=== PATIENT | male | born 1965 | race Caucasian/White ===

== ENCOUNTER 2021-06-06 07:48 | Inpatient (IN) ==
[2021-06-06] MEDS ORDERED: 0.9 % Sodium Chloride 1,000 ML IVC ONE ×2 (07:58→08:00)
[2021-06-06] MEDS ORDERED: Pantoprazole 40 MG VIAL IVP ONE ×2 (07:58→08:07)
[2021-06-06] MEDS ORDERED: Ondansetron 4 MG/2 ML VIAL IVP ONE ×2 (07:58→10:33)
[2021-06-06] MEDS ORDERED: cefTRIAXone 1,000 MG in Water for inj. (sterile) 10 ML IVP ONE (08:16)
[2021-06-06] MEDS: Octreotide 400 MCG in 0.9 % Sodium Chloride 100 ML IVC SCH (08:33)
[2021-06-06] MEDS: Pantoprazole 40 MG in 0.9 % Sodium Chloride Mini Bag 100 ML IVC SCH ×4 (08:37→20:37)
[2021-06-06 09:00] LABS: Basophils % 0.3 %; Hematocrit 28.8 % (37.5-50.1); Hemoglobin 9.6 g/dL (12.9-16.9); Immature Granulocytes % 0.5 % (0-4); Lymphocytes # 0.3 K/mcL (0.6-4.6); Lymphocytes % 5.3 %; Mean Corpuscular HGB Conc 33.3 g/dL (31.6-35.5); Mean Corpuscular Hemoglobin 34.9 pg (28.0-33.3); Mean Corpuscular Volume 104.7 fL (83.0-100.0); Mean Platelet Volume 10.6 fL (9.4-12.4); Monocytes # 0.7 K/mcL (0.0-1.3); Neutrophils # 4.9 K/mcL (1.6-8.9); Platelet Count 114 K/mcL (140-400); Red Blood Count 2.75 M/mcL (4.19-5.50); Red Cell Distribution Width 13.5 % (11.5-14.5); Segmented Neutrophils % 81.9 %
[2021-06-06 09:15] LABS: Alanine Aminotransferase 86 Units/L (7-52); Alkaline Phosphatase 143 Units/L (34-104); Aspartate Amino Transferase 184 Units/L (13-39); BUN/Creatinine Ratio 27 (6-26); Bilirubin,Direct 2.3 mg/dL (0.0-0.2); Bilirubin,Indirect 1.8 mg/dL (0.0-1.0); Bilirubin,Total 4.1 mg/dL (0.3-1.0); Blood Urea Nitrogen 31 mg/dL (6-20); Calcium 8.1 mg/dL (8.6-10.3); Carbon Dioxide 24 mEq/L (23-29); Chloride 104 mEq/L (98-107); Globulin 3.1 g/dL (2.4-3.5); Glucose 130 mg/dL (70-105); Lipase 113 Units/L (11-82); Magnesium 1.4 mg/dL (1.6-2.6); Osmolality,Calculated 296 (280-300); Potassium 4.2 mEq/L (3.5-5.1); Sodium 139 mEq/L (136-145); Total Protein 6.1 g/dL (6.4-8.9); Troponin I < 0.03 ng/mL (< 0.04); eGFR For African Americans > 60 (> 60); eGFR For Non-African Americans > 60 (> 60)
[2021-06-06] MEDS ORDERED: Isovue-370 500 ML BOTTLE IVP ONE (09:45)
[2021-06-06] MEDS ORDERED: 0.9 % Sodium Chloride 250 ML ONE (10:11)
[2021-06-06] MEDS ORDERED: Naloxone 0.4 MG/ML INJ IVP PRN (11:43)
[2021-06-06] MEDS: MetroNIDAZOLE 500 MG/100 ML 500 MG/100 ML BAG IVPB SCH (15:46)
[2021-06-06 16:12] LABS: INR 1.5; Prothrombin Time 17.4 Seconds (9.4-12.1)
[2021-06-06 16:14] LABS: Activated Partial Thrombo Time 30.7 Seconds (26.0-36.0)
[2021-06-06 19:03] LABS: Adenovirus Not Detected (Not Detect); Bordetella Pertussis Not Detected (Not Detect); Chlamydophila pneumoniae Not Detected (Not Detect); Coronavirus 229E Not Detected (Not Detect); Coronavirus HKU1 Not Detected (Not Detect); Coronavirus NL63 Not Detected (Not Detect); Coronavirus OC43 Not Detected (Not Detect); Human Metapneumovirus Not Detected (Not Detect); Human Rhinovirus/Enterovirus Not Detected (Not Detect); Influenza A Subtype 2009 H1 Not Detected (Not Detect); Influenza B Not Detected (Not Detect); Mycoplasma pneumoniae Not Detected (Not Detect); Parainfluenza Virus 1 Not Detected (Not Detect); Parainfluenza Virus 2 Not Detected (Not Detect); Parainfluenza Virus 3 Not Detected (Not Detect); Parainfluenza Virus 4 Not Detected (Not Detect); Respiratory Syncytial Virus Not Detected (Not Detect); SARS-CoV-2 Not Detected (Not Detect)
[2021-06-06] MEDS ORDERED: *HR* LORazepam 2 MG/ML VIAL IVP PRN ×3 (20:45)
[2021-06-06] MEDS ORDERED: Prochlorperazine 10 MG/2 ML VIAL IVP PRN (21:02)
[2021-06-06 21:29] LABS: Amylase 34 Units/L (29-103); Ethanol < 10 mg/dL (Less than 10)
[2021-06-07] MEDS: MetroNIDAZOLE 500 MG/100 ML 500 MG/100 ML BAG IVPB SCH ×2 (00:03→10:15)
[2021-06-07 03:36] LABS: Basophils % 0.4 %; Hemoglobin 8.6 g/dL (12.9-16.9); Lymphocytes % 7.5 %
[2021-06-07 03:38] LABS: Eosinophils % 0.8 %; Hematocrit 25.6 % (37.5-50.1); Immature Granulocytes % 0.4 % (0-4); Immature Platelets 6.4 % (1.1-6.1); Lymphocytes # 0.2 K/mcL (0.6-4.6); Mean Corpuscular HGB Conc 33.6 g/dL (31.6-35.5); Mean Corpuscular Hemoglobin 34.4 pg (28.0-33.3); Mean Corpuscular Volume 102.4 fL (83.0-100.0); Monocytes # 0.5 K/mcL (0.0-1.3); Segmented Neutrophils % 72.9 %; White Blood Count 2.7 K/mcL (4.3-11.1)
[2021-06-07 03:51] LABS: BUN/Creatinine Ratio 33 (6-26); Blood Urea Nitrogen 25 mg/dL (6-20); Calcium 7.9 mg/dL (8.6-10.3); Carbon Dioxide 27 mEq/L (23-29); Chloride 106 mEq/L (98-107); Glucose 136 mg/dL (70-105); Osmolality,Calculated 292 (280-300); Potassium 4.4 mEq/L (3.5-5.1); Sodium 138 mEq/L (136-145); eGFR For African Americans > 60 (> 60); eGFR For Non-African Americans > 60 (> 60)
[2021-06-07 04:36] LABS: Platelet Count 46 K/mcL (140-400)
[2021-06-07] MEDS ORDERED: Pantoprazole 40 MG VIAL ONE ×2 (05:16→09:56)
[2021-06-07] MEDS: Pantoprazole 40 MG in 0.9 % Sodium Chloride Mini Bag 100 ML IVC SCH ×4 (05:26→19:52)
[2021-06-07] MEDS ORDERED: Lidocaine -MPF 2% 2 ML VIAL ONE ×2 (07:27→09:14)
[2021-06-07] MEDS ORDERED: Ondansetron 4 MG/2 ML VIAL ONE (07:27)
[2021-06-07] MEDS ORDERED: *HR* FentaNYL (PF) 100 MCG/2 ML VIAL ONE (07:27)
[2021-06-07] MEDS ORDERED: *HR* Succinylcholine 200 MG/10 ML VIAL IVP ONE (07:27)
[2021-06-07] MEDS ORDERED: *HR* Propofol 200 MG/20 ML VIAL IVP ONE ×3 (07:27→09:29)
[2021-06-07 08:49] LABS: Amphetamine Screen,Urine Negative ng/mL (Cutoff=1000); Barbiturate Screen,Urine Negative ng/mL (Cutoff=200); Benzodiazepines Screen,Urine Negative ng/mL (Cutoff=200); Cannabinoid Screen,Urine Negative ng/mL (Cutoff = 50); Cocaine Screen,Urine Negative ng/mL (Cutoff= 300); Opiate Screen,Urine Negative ng/mL (Cutoff=300); Phencyclidine Screen,Urine Negative ng/mL (Cutoff=25)
[2021-06-07] MEDS ORDERED: cefTRIAXone 1,000 MG in Water for inj. (sterile) 10 ML IVP SCH (09:00)
[2021-06-07] MEDS ORDERED: *HR* Phytonadione 10 MG/ML AMPUL SQ ONE (09:45)
[2021-06-07] MEDS: carvediloL 6.25 MG TABLET PO SCH (16:14)
[2021-06-07] MEDS: Octreotide 400 MCG in 0.9 % Sodium Chloride 100 ML IVC SCH ×3 (16:20→17:06)
[2021-06-08] MEDS ORDERED: Melatonin 3 MG TABLET PO ONE (00:55)
[2021-06-08] MEDS: Pantoprazole 40 MG in 0.9 % Sodium Chloride Mini Bag 100 ML IVC SCH ×2 (01:15→08:13)
[2021-06-08 06:29] LABS: Hemoglobin 8.8 g/dL (12.9-16.9); Red Cell Distribution Width 14.3 % (11.5-14.5)
[2021-06-08 06:32] LABS: Eosinophils % 1.3 %; Hematocrit 26.3 % (37.5-50.1); Immature Granulocytes % 0.8 % (0-4); Immature Platelets 7.2 % (1.1-6.1); Lymphocytes # 0.1 K/mcL (0.6-4.6); Lymphocytes % 5.5 %; Mean Corpuscular HGB Conc 33.5 g/dL (31.6-35.5); Mean Corpuscular Hemoglobin 34.6 pg (28.0-33.3); Mean Corpuscular Volume 103.5 fL (83.0-100.0); Mean Platelet Volume 11.8 fL (9.4-12.4); Monocytes # 0.3 K/mcL (0.0-1.3); Monocytes % 14.3 %; Neutrophils # 1.9 K/mcL (1.6-8.9); Red Blood Count 2.54 M/mcL (4.19-5.50); Segmented Neutrophils % 78.1 %; White Blood Count 2.4 K/mcL (4.3-11.1)
[2021-06-08 06:34] LABS: Platelet Count 49 K/mcL (140-400)
[2021-06-08 06:48] LABS: BUN/Creatinine Ratio 23 (6-26); Blood Urea Nitrogen 16 mg/dL (6-20); Calcium 8.2 mg/dL (8.6-10.3); Carbon Dioxide 26 mEq/L (23-29); Chloride 104 mEq/L (98-107); Glucose 120 mg/dL (70-105); Osmolality,Calculated 282 (280-300); Potassium 3.8 mEq/L (3.5-5.1); Sodium 135 mEq/L (136-145); eGFR For African Americans > 60 (> 60); eGFR For Non-African Americans > 60 (> 60)
[2021-06-08] MEDS: carvediloL 6.25 MG TABLET PO SCH (08:14)
[2021-06-08] MEDS: Octreotide 400 MCG in 0.9 % Sodium Chloride 100 ML IVC SCH (08:30)
[2021-06-08] MEDS ORDERED: lisinopriL 20 MG TABLET PO SCH (09:00)
[2021-06-08] MEDS ORDERED: Multivit/Ca/Min/Fe/FA 1 TAB TABLET PO SCH (09:00)
[2021-06-08 10:48] VITALS: BP 116/70; PULSE 74; TEMP 98.5; O2SAT 97
== END 2021-06-08 13:18 | disposition home or self-care (01) | DRG 442 ==
LOC: SUATTDRO → EMEROOARM 07:48 → 3ANU 07:48 → SUATTDRO 15:25
PROVIDERS: ADMIT Internal Medicine; ATTEND Internal Medicine

== ENCOUNTER 2021-08-31 17:44 | Inpatient (IN) ==
[2021-08-31] MEDS ORDERED: cefTRIAXone 1,000 MG in Water for inj. (sterile) 10 ML IVP ONE (18:00)
[2021-08-31] MEDS ORDERED: Pantoprazole 40 MG VIAL IVP ONE (18:00)
[2021-08-31] MEDS ORDERED: Metoclopramide 10 MG/2 ML VIAL IVP ONE (18:00)
[2021-08-31] MEDS ORDERED: 0.9 % Sodium Chloride 250 ML ONE ×2 (18:06→18:17)
[2021-08-31] MEDS: Pantoprazole 40 MG in 0.9 % Sodium Chloride Mini Bag 100 ML IVC SCH ×3 (18:11→23:37)
[2021-08-31 18:16] LABS: Basophils % 0.2 %; Eosinophils % 0.1 %; Hematocrit 24.7 % (37.5-50.1); Hemoglobin 7.7 g/dL (12.9-16.9); Immature Granulocytes % 0.5 % (0-4); Lymphocytes # 0.8 K/mcL (0.6-4.6); Lymphocytes % 9.1 %; Mean Corpuscular HGB Conc 31.2 g/dL (31.6-35.5); Mean Corpuscular Hemoglobin 29.8 pg (28.0-33.3); Mean Corpuscular Volume 95.7 fL (83.0-100.0); Mean Platelet Volume 10.5 fL (9.4-12.4); Monocytes % 12.1 %; Neutrophils # 6.7 K/mcL (1.6-8.9); Platelet Count 143 K/mcL (140-400); Red Blood Count 2.58 M/mcL (4.19-5.50); Red Cell Distribution Width 18.9 % (11.5-14.5); White Blood Count 8.5 K/mcL (4.3-11.1)
[2021-08-31 18:26] LABS: INR 1.7; Prothrombin Time 19.4 Seconds (9.4-12.1)
[2021-08-31 18:29] LABS: Activated Partial Thrombo Time 28.4 Seconds (26.0-36.0)
[2021-08-31 18:40] LABS: Alanine Aminotransferase 29 Units/L (7-52); Albumin 2.7 g/dL (3.5-5.7); Albumin/Globulin Ratio 0.8 (1.1-2.2); Alkaline Phosphatase 190 Units/L (34-104); Aspartate Amino Transferase 60 Units/L (13-39); BUN/Creatinine Ratio 24 (6-26); Bilirubin,Total 2.8 mg/dL (0.3-1.0); Blood Urea Nitrogen 26 mg/dL (6-20); Calcium 8.4 mg/dL (8.6-10.3); Carbon Dioxide 27 mEq/L (23-29); Chloride 102 mEq/L (98-107); Globulin 3.3 g/dL (2.4-3.5); Glucose 171 mg/dL (70-105); Osmolality,Calculated 299 (280-300); Potassium 4.2 mEq/L (3.5-5.1); Sodium 140 mEq/L (136-145); Troponin I < 0.03 ng/mL (< 0.04); eGFR For African Americans > 60 (> 60); eGFR For Non-African Americans > 60 (> 60)
[2021-08-31] MEDS: Octreotide 400 MCG in 0.9 % Sodium Chloride 100 ML IVC SCH (19:13)
[2021-08-31] MEDS ORDERED: Acetaminophen 325 MG TABLET PO PRN (19:59)
[2021-08-31] MEDS ORDERED: Naloxone 0.4 MG/ML INJ IVP PRN (19:59)
[2021-08-31] MEDS ORDERED: Ondansetron 4 MG/2 ML VIAL IVP PRN (19:59)
[2021-08-31] MEDS ORDERED: Dextrose Gel 15 GM/37.5 ML TUBE PO PRN ×2 (20:02)
[2021-08-31] MEDS ORDERED: D5% in Water 1,000 ML IVC PRN (20:02)
[2021-08-31] MEDS ORDERED: *HR* Dextrose 50 % in Water (Syg) 50 ML SYRINGE IVP PRN (20:02)
[2021-08-31] MEDS ORDERED: *HR* LORazepam 2 MG/ML VIAL IVP PRN ×3 (21:32)
[2021-08-31] MEDS ORDERED: Nicotine 21 MG PATCH.TD24 TD SCH (21:45)
[2021-09-01 01:10] LABS: Basophils % 0.2 %; Hematocrit 26.5 % (37.5-50.1); Hemoglobin 8.7 g/dL (12.9-16.9); Mean Corpuscular HGB Conc 32.8 g/dL (31.6-35.5)
[2021-09-01 01:12] LABS: Immature Granulocytes % 0.5 % (0-4); Immature Platelets 4.2 % (1.1-6.1); Lymphocytes # 0.3 K/mcL (0.6-4.6); Lymphocytes % 4.9 %; Mean Corpuscular Hemoglobin 29.7 pg (28.0-33.3); Mean Corpuscular Volume 90.4 fL (83.0-100.0); Mean Platelet Volume 11.6 fL (9.4-12.4); Monocytes # 0.8 K/mcL (0.0-1.3); Monocytes % 11.7 %; Neutrophils # 5.4 K/mcL (1.6-8.9); Red Blood Count 2.93 M/mcL (4.19-5.50); Red Cell Distribution Width 17.8 % (11.5-14.5); Segmented Neutrophils % 82.7 %; White Blood Count 6.5 K/mcL (4.3-11.1)
[2021-09-01 01:27] LABS: BUN/Creatinine Ratio 30 (6-26); Blood Urea Nitrogen 28 mg/dL (6-20); Carbon Dioxide 26 mEq/L (23-29); Chloride 104 mEq/L (98-107); Glucose 148 mg/dL (70-105); Magnesium 1.7 mg/dL (1.6-2.6); Osmolality,Calculated 292 (280-300); Phosphorous 3.3 mg/dL (2.7-4.5); Potassium 4.4 mEq/L (3.5-5.1); Sodium 137 mEq/L (136-145); eGFR For African Americans > 60 (> 60); eGFR For Non-African Americans > 60 (> 60)
[2021-09-01 01:28] LABS: Albumin 2.4 g/dL (3.5-5.7); Albumin/Globulin Ratio 0.8 (1.1-2.2); Bilirubin,Direct 1.9 mg/dL (0.0-0.2); Bilirubin,Indirect 1.7 mg/dL (0.0-1.0); Bilirubin,Total 3.6 mg/dL (0.3-1.0); Globulin 3.1 g/dL (2.4-3.5); Total Protein 5.5 g/dL (6.4-8.9)
[2021-09-01 01:41] LABS: Platelet Count 74 K/mcL (140-400)
[2021-09-01 01:42] LABS: Platelet Estimate Slight Decrease (Normal)
[2021-09-01] MEDS: Octreotide 400 MCG in 0.9 % Sodium Chloride 100 ML IVC SCH ×3 (03:58→21:45)
[2021-09-01] MEDS: Pantoprazole 40 MG in 0.9 % Sodium Chloride Mini Bag 100 ML IVC SCH ×4 (04:05→23:36)
[2021-09-01 06:20] LABS: Hematocrit 25.7 % (37.5-50.1); Hemoglobin 8.7 g/dL (12.9-16.9)
[2021-09-01] MEDS ORDERED: cefTRIAXone 1,000 MG in Water for inj. (sterile) 10 ML IVP SCH (09:00)
[2021-09-01 10:13] LABS: Hematocrit 26.2 % (37.5-50.1); Hemoglobin 8.7 g/dL (12.9-16.9)
[2021-09-01] MEDS ORDERED: 0.9 % Sodium Chloride 250 ML ONE ×2 (11:21→13:36)
[2021-09-01] MEDS ORDERED: Lidocaine -MPF 2% 5 ML VIAL ONE (14:22)
[2021-09-01 14:30] LABS: Hematocrit 24.8 % (37.5-50.1); Hemoglobin 8.1 g/dL (12.9-16.9)
[2021-09-01] MEDS ORDERED: Thiamine (B-1) 100 MG, Folic Acid 1 MG, MVI, adult with vitamin K 10 ML in 0.9 % Sodi... IVPB SCH (18:00)
[2021-09-01] MEDS ORDERED: Acetaminophen 325 MG TABLET PO PRN (19:53)
[2021-09-01] MEDS ORDERED: Naloxone 0.4 MG/ML INJ IVP PRN (19:53)
[2021-09-01] MEDS ORDERED: Dextrose Gel 15 GM/37.5 ML TUBE PO PRN ×2 (19:53)
[2021-09-01] MEDS ORDERED: *HR* LORazepam 2 MG/ML VIAL IVP PRN ×3 (19:53)
[2021-09-01] MEDS ORDERED: Ondansetron 4 MG/2 ML VIAL IVP PRN (19:53)
[2021-09-01] MEDS ORDERED: D5% in Water 1,000 ML IVC PRN (19:53)
[2021-09-01] MEDS ORDERED: *HR* Dextrose 50 % in Water (Syg) 50 ML SYRINGE IVP PRN (19:53)
[2021-09-01 20:09] LABS: Hematocrit 24.5 % (37.5-50.1)
[2021-09-01] MEDS: Nicotine 21 MG PATCH.TD24 TD SCH (23:39)
[2021-09-02] MEDS: Pantoprazole 40 MG in 0.9 % Sodium Chloride Mini Bag 100 ML IVC SCH ×5 (03:47→22:28)
[2021-09-02] MEDS: Octreotide 400 MCG in 0.9 % Sodium Chloride 100 ML IVC SCH ×3 (04:44→21:21)
[2021-09-02 04:47] LABS: Basophils % 0.4 %; Hemoglobin 7.7 g/dL (12.9-16.9); Mean Platelet Volume 10.3 fL (9.4-12.4)
[2021-09-02 04:49] LABS: VBG Ionized Calcium 1.15 mmol/L (1.15-1.35)
[2021-09-02 04:49] LABS: Eosinophils % 1.3 %; Hematocrit 23.7 % (37.5-50.1); Immature Platelets 3.2 % (1.1-6.1); Lymphocytes # 0.2 K/mcL (0.6-4.6); Lymphocytes % 10.5 %; Mean Corpuscular HGB Conc 32.5 g/dL (31.6-35.5); Mean Corpuscular Hemoglobin 30.3 pg (28.0-33.3); Mean Corpuscular Volume 93.3 fL (83.0-100.0); Monocytes # 0.4 K/mcL (0.0-1.3); Monocytes % 17.5 %; Neutrophils # 1.6 K/mcL (1.6-8.9); Red Blood Count 2.54 M/mcL (4.19-5.50); Red Cell Distribution Width 18.4 % (11.5-14.5); Segmented Neutrophils % 70.3 %; White Blood Count 2.3 K/mcL (4.3-11.1)
[2021-09-02 04:53] LABS: Platelet Count 65 K/mcL (140-400)
[2021-09-02 05:05] LABS: Alanine Aminotransferase 55 Units/L (7-52); Albumin 2.4 g/dL (3.5-5.7); Albumin/Globulin Ratio 0.8 (1.1-2.2); Alkaline Phosphatase 139 Units/L (34-104); Aspartate Amino Transferase 111 Units/L (13-39); BUN/Creatinine Ratio 25 (6-26); Bilirubin,Total 2.2 mg/dL (0.3-1.0); Blood Urea Nitrogen 20 mg/dL (6-20); Calcium 7.9 mg/dL (8.6-10.3); Carbon Dioxide 27 mEq/L (23-29); Chloride 105 mEq/L (98-107); Glucose 108 mg/dL (70-105); Magnesium 1.7 mg/dL (1.6-2.6); Osmolality,Calculated 287 (280-300); Potassium 4.1 mEq/L (3.5-5.1); Sodium 137 mEq/L (136-145); Total Protein 5.4 g/dL (6.4-8.9); eGFR For African Americans > 60 (> 60); eGFR For Non-African Americans > 60 (> 60)
[2021-09-02] MEDS: cefTRIAXone 1,000 MG in Water for inj. (sterile) 10 ML IVP SCH (07:43)
[2021-09-02 16:18] LABS: Hematocrit 25.1 % (37.5-50.1); Hemoglobin 8.1 g/dL (12.9-16.9)
[2021-09-02] MEDS: Lactulose Oral Soln 20 GM/30 ML UDC PO SCH ×2 (17:22→20:33)
[2021-09-02] MEDS: carvediloL 6.25 MG TABLET PO SCH (17:22)
[2021-09-02] MEDS ORDERED: Thiamine (B-1) 100 MG, Folic Acid 1 MG, MVI, adult with vitamin K 10 ML in 0.9 % Sodi... IVPB SCH (18:00)
[2021-09-02] MEDS ORDERED: Pantoprazole 40 MG VIAL IVP SCH (18:00)
[2021-09-02] MEDS: Nicotine 21 MG PATCH.TD24 TD SCH (20:32)
[2021-09-02 22:15] LABS: Hematocrit 23.2 % (37.5-50.1); Hemoglobin 7.3 g/dL (12.9-16.9)
[2021-09-03] MEDS: Pantoprazole 40 MG in 0.9 % Sodium Chloride Mini Bag 100 ML IVC SCH ×5 (03:21→19:42)
[2021-09-03 04:20] LABS: Eosinophils # 0.1 K/mcL (0.0-0.6); Eosinophils % 2.2 %; Hematocrit 23.7 % (37.5-50.1); Hemoglobin 7.9 g/dL (12.9-16.9); Immature Platelets 3.8 % (1.1-6.1); Lymphocytes # 0.3 K/mcL (0.6-4.6); Mean Corpuscular HGB Conc 33.3 g/dL (31.6-35.5); Mean Corpuscular Hemoglobin 31.3 pg (28.0-33.3); Mean Platelet Volume 10.4 fL (9.4-12.4); Monocytes # 0.7 K/mcL (0.0-1.3); Monocytes % 18.5 %; Neutrophils # 2.6 K/mcL (1.6-8.9); Red Blood Count 2.52 M/mcL (4.19-5.50); Red Cell Distribution Width 18.1 % (11.5-14.5); Segmented Neutrophils % 72.3 %; White Blood Count 3.6 K/mcL (4.3-11.1)
[2021-09-03 04:21] LABS: Platelet Count 77 K/mcL (140-400)
[2021-09-03 04:39] LABS: BUN/Creatinine Ratio 19 (6-26); Blood Urea Nitrogen 14 mg/dL (6-20); Carbon Dioxide 25 mEq/L (23-29); Chloride 105 mEq/L (98-107); Glucose 118 mg/dL (70-105); Magnesium 1.5 mg/dL (1.6-2.6); Osmolality,Calculated 280 (280-300); Phosphorous 3.4 mg/dL (2.7-4.5); Potassium 3.8 mEq/L (3.5-5.1); Sodium 134 mEq/L (136-145); eGFR For African Americans > 60 (> 60); eGFR For Non-African Americans > 60 (> 60)
[2021-09-03 05:09] LABS: Platelet Estimate Slight Decrease (Normal); Reactive Lymphocytes Present (Not Present)
[2021-09-03] MEDS: Octreotide 400 MCG in 0.9 % Sodium Chloride 100 ML IVC SCH ×4 (05:23→19:42)
[2021-09-03] MEDS: Lactulose Oral Soln 20 GM/30 ML UDC PO SCH ×3 (08:55→22:05)
[2021-09-03] MEDS: carvediloL 6.25 MG TABLET PO SCH ×2 (08:55→16:18)
[2021-09-03] MEDS: Spironolactone 12.5 MG TABLET PO SCH (08:55)
[2021-09-03] MEDS: Furosemide 40 MG TABLET PO SCH (08:55)
[2021-09-03] MEDS: cefTRIAXone 1,000 MG in Water for inj. (sterile) 10 ML IVP SCH (08:56)
[2021-09-03] MEDS: Albumin 25% 12.5gm/50mL 12.5 GM/50 ML IV.SOLN IVPB SCH ×2 (16:22→23:55)
[2021-09-03 18:59] LABS: Appearance of Peritoneal Fl HAZY (Clear)
[2021-09-03 19:10] LABS: RBC,Peritoneal Fluid < 2000 RBC/mcL
[2021-09-03 19:22] LABS: Glucose,Peritoneal Fluid 136 mg/dL (No Ref Range); LDH,Peritoneal Fluid 36 Units/L (No Ref Range); Total Protein,Peritoneal Fluid < 2.0 g/dL
[2021-09-03 20:20] LABS: Basophils,Peritoneal Fluid 0 %; Eosinophils,Peritoneal Fluid 0 %
[2021-09-03] MEDS: Nicotine 21 MG PATCH.TD24 TD SCH (22:06)
[2021-09-04 03:24] VITALS: O2SAT 97
[2021-09-04 05:42] LABS: Hematocrit 25.3 % (37.5-50.1)
[2021-09-04 06:00] LABS: BUN/Creatinine Ratio 13 (6-26); Blood Urea Nitrogen 9 mg/dL (6-20); Calcium 8.2 mg/dL (8.6-10.3); Carbon Dioxide 23 mEq/L (23-29); Chloride 102 mEq/L (98-107); Glucose 105 mg/dL (70-105); Magnesium 1.5 mg/dL (1.6-2.6); Osmolality,Calculated 271 (280-300); Phosphorous 3.3 mg/dL (2.7-4.5); Potassium 3.6 mEq/L (3.5-5.1); Sodium 131 mEq/L (136-145); eGFR For African Americans > 60 (> 60); eGFR For Non-African Americans > 60 (> 60)
[2021-09-04 07:24] VITALS: BP 132/89; PULSE 80; TEMP 98.7
[2021-09-04] MEDS ORDERED: Magnesium Oxide 400 MG TABLET PO ONE (07:25)
[2021-09-04] MEDS: Spironolactone 12.5 MG TABLET PO SCH (08:05)
[2021-09-04] MEDS: carvediloL 6.25 MG TABLET PO SCH (08:05)
[2021-09-04] MEDS: Lactulose Oral Soln 20 GM/30 ML UDC PO SCH (08:06)
[2021-09-04] MEDS: Furosemide 40 MG TABLET PO SCH (08:06)
[2021-09-04] MEDS: Albumin 25% 12.5gm/50mL 12.5 GM/50 ML IV.SOLN IVPB SCH (08:08)
[2021-09-06 22:46] LABS: Fluid Source for Albumin ASCITES FLUID
== END 2021-09-04 12:20 | disposition home or self-care (01) | DRG 433 ==
LOC: ICNU 17:44 → EMEROOARM 17:44 → SUATTDRO 20:38 → ICNU 20:44 → 2NENU 09-02 13:49
PROVIDERS: ADMIT Internal Medicine; ATTEND Internal Medicine